=== PATIENT | male | born 1990 | race Caucasian/White ===

== ENCOUNTER 2017-03-10 01:09 | Inpatient (IN) | payer SELFPAY ==
[2017-03-10 01:37] LABS: Hematocrit 50 % (42-52); Hemoglobin 16.7 g/dl (14.0-18.0); Mean Corpuscular HGB Conc 33 g/dl (31-36); Mean Corpuscular Hemoglobin 30 pg (27-31); Mean Corpuscular Volume 90 fL (80-94); Mean Platelet Volume 8 um3 (7.4-10.4); Red Blood Count 5.56 10^6/ul (4.0-5.4); Red Cell Distribution Width 14 % (10.5-15); White Blood Count 12.6 10^3/ul (3.5-10.8)
[2017-03-10 01:53] LABS: ALT 19 U/L (7-52); AST 26 U/L (13-39); Acetaminophen < 15 mcg/mL; Alcohol 238 mg/dL (<10); Alkaline Phosphatase 67 U/L (34-104); Anion Gap 11 mmol/L (2-11); BUN/Creatinine Ratio 15.3 (8-20); Blood Urea Nitrogen 15 mg/dL (6-24); CO2 Carbon Dioxide 23 mmol/L (22-32); Calcium 9.4 mg/dL (8.6-10.3); Chloride 104 mmol/L (101-111); EGFR African American 117.1 (>60); EGFR Non-African American 91.1 (>60); Globulin 2.9 g/dL (2-4); Glucose 99 mg/dL (70-100); Potassium 3.7 mmol/L (3.5-5.0); Salicylate < 2.50 mg/dL (<30); Sodium 138 mmol/L (133-145); Total Protein 7.9 g/dL (6.4-8.9)
[2017-03-10 02:12] LABS: TSH (Thyroid Stimulating Horm) 2.03 mcIU/mL (0.34-5.60)
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
[2017-03-10] MEDS ORDERED: Nicotine GUM* 2 MG ONE (08:28)
[2017-03-10] MEDS: Nicotine GUM* 2 MG PO ONE (08:29)
[2017-03-10 10:17] LABS: Urine Bilirubin Negative (Negative); Urine Glucose Negative (Negative); Urine Nitrite Negative (Negative)
[2017-03-10 10:28] LABS: Benzodiazepine Urine Screen None Detected (None Detect)
[2017-03-10] MEDS ORDERED: Al Hydrox/Mg Hydrox/Simet LIQ* 30 ML UDC PO PRN (13:20)
[2017-03-10] MEDS ORDERED: Acetaminophen TAB* 325 MG PO PRN (13:20)
[2017-03-10] MEDS ORDERED: Haloperidol TAB* 5 MG PO PRN (16:27)
[2017-03-10] MEDS ORDERED: LORazepam TAB(*) 1 MG PO PRN (16:27)
[2017-03-11] MEDS: Vitamin THERAPEUTIC TAB PO SCH (10:01)
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
[2017-03-11] MEDS ORDERED: Nicotine GUM* 2 MG ONE (20:47)
[2017-03-11] MEDS: Nicotine GUM* 2 MG PO ONE (20:48)
[2017-03-12] MEDS: Vitamin THERAPEUTIC TAB PO SCH (11:07)
[2017-03-12] MEDS: Nicotine GUM* 2 MG PO PRN (16:14)
--- NOTE | 2017-03-12 21:09 | PN ---
Subjective - Subjective Service Type: 69985 Hosp care 15 min low complexity Subjective: Patient noted to be calm, cooperative, and pleasant this weekend. He does isolate in his room primarily. He is up for meals and participates in groups. Patient reports frustration with admission. He requests discharge. He denies SI/HI and AH/VH. Sleep and appetite are wnl. Patient informed his attending psychiatrist will see him in the am. Objective - Appearance Appearance: Well Developed/Nourished Dysmorphic Features: No Hygiene: Normal Grooming: Well Kept - Behavior Psychomotor Activities: Normal Exhibits Abnormal Movement: No - Attitude and Relatedness Attitude and Relatedness: Cooperative Eye Contact: Fair - Speech Quality: Unpressured Latencies: Normal Quantity: Appropriate - Mood Patient's Decription of Mood: "Fine" - Affect Observed Affect: Tense Affect Consistent with: Dysphoria - Thought Process Patient's Thought Process: Coherent Thought Content: No Passive Wish, No Suicidal Planning, No Homicidal Ideation, No Paranoid Ideation - Sensorium Experiencing Hallucinations: No, Sensorium is Clear Type of Hallucinations: Visual: No, Auditory: No, Command: No - Level of Consciousness Level of Consciousness: Alert Orientation: Yes Intact, Yes Orientated to Time, Yes Orientated to Place, Yes Orientated to Person - Impulse Control Impulse Control: Intact - Insight and Judgement Insight and Judgement: Fair - Group Participation Particating in Group Activities: Yes - Medication Management Medication Management Adherence: Yes Assessment - Assessment Merits Inpatient Hospitalization: For Immediate Safety, For Stabilization Inpatient DSM-IV Dx: 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 2. Alcohol use d/o, severe. 3. Cocaine use d/o, severe Plan - Plan Treatment Plan: Name: MARIA LUZ BENNETT Birthdate: 1990 [id number] 1. Continue admission to [facility] for safety and Sx mx. 2. Consider inpt/outpt [facility] referral. 3. Patient w/o Alcohol w/d symptoms, WAM not started. 4. Patient informed his attending psychiatrist will see him in the am. Medications: Current Medications Acetaminophen (Tylenol Tab*) 650 mg PO Q4H PRN PRN Reason: for pain; or Temp >101 F Al Hydrox/Mg Hydrox/Simethicone (Maalox Plus*) 30 ml PO Q4H PRN PRN Reason: INDIGESTION Haloperidol (Haldol Tab*) 5 mg PO Q6H PRN PRN Reason: AGITATION Lorazepam (Ativan Tab(*)) 2 mg PO Q6H PRN PRN Reason: ANXIETY Multivitamins (Theragran Tab*) 1 tab PO DAILY WALKER Last Admin: 03/12/17 11:07 Dose: Not Given Nicotine Polacrilex (Nicotine Gum*) 2 mg PO Q2H PRN PRN Reason: CRAVINGS Last Admin: 03/12/17 16:14 Dose: 2 mg - Discharge Plan Discharge Plan: Drug/Alcohol Rehab
[2017-03-13 08:02] VITALS: BP 116/70
[2017-03-13] MEDS: Vitamin THERAPEUTIC TAB PO SCH (09:39)
[2017-03-13] MEDS: Nicotine GUM* 2 MG PO PRN ×3 (10:56→21:59)
--- NOTE | 2017-03-13 14:41 | PN ---
Subjective - Subjective Service Type: 21565 Hosp care 15 min low complexity Subjective: The patient is seen along with KELLEN Sanders. He is friendly and in good spirits, requesting discharge from the hospital. Maria Luz appears minimizing of his immediate mental health needs, although he acknowledges that outpatient support, in the form of counseling, would be helpful for him. "I shouldn't have been admitted. I was drunk. I didn't mean those things I was saying." He denies SI and declines the need for substance abuse treatment. He is future- oriented, talking about getting his old job back in [place], [place]. He gives us the number of a close friend for collateral, preferring that we not contact his family. Objective - Appearance Appearance: Well Developed/Nourished Dysmorphic Features: No Hygiene: Normal Grooming: Fairly Well Kept - Behavior Psychomotor Activities: Normal Exhibits Abnormal Movement: No - Attitude and Relatedness Attitude and Relatedness: Cooperative Eye Contact: Fair - Speech Quality: Unpressured Latencies: Normal Quantity: Appropriate - Mood Patient's Decription of Mood: "Good" - Affect Observed Affect: Good Affect Consistent with: Euthymia - Thought Process Patient's Thought Process: Coherent Thought Content: No Passive Wish, No Suicidal Planning, No Homicidal Ideation, No Paranoid Ideation - Sensorium Experiencing Hallucinations: No, Sensorium is Clear Type of Hallucinations: Visual: No, Auditory: No, Command: No - Level of Consciousness Level of Consciousness: Alert Orientation: Yes Intact, Yes Orientated to Time, Yes Orientated to Place, Yes Orientated to Person - Impulse Control Impulse Control: Tenuous - Insight and Judgement Insight and Judgement: Fair - Group Participation Particating in Group Activities: Yes - Medication Management Medication Management Adherence: Yes Assessment - Assessment Merits Inpatient Hospitalization: Consolidate Improvements, Pending Safe DC Plan Inpatient DSM-IV Dx: 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 2. Alcohol use d/o, severe. 3. Cocaine use d/o, severe Clinical Impression: 26 y.o. single, white male who is homeless and unemployed, presenting with acute alcohol intoxication and threats to kill himself. Plan - Plan Treatment Plan: Name: MARIA LUZ BENNETT Birthdate: 1990 [id number] The patient is receiving conservative milieu therapy. He denies SI and feels like he would like to be discharged with outpatient care. We await consultation with a Medicaid manager intensive care and will make outpatient follow up referrals. He declines inpatient or outpatient drug/alcohol rehab. Continued Medication Management: Consider Medication Medications: Current Medications Acetaminophen (Tylenol Tab*) 650 mg PO Q4H PRN PRN Reason: for pain; or Temp >101 F Al Hydrox/Mg Hydrox/Simethicone (Maalox Plus*) 30 ml PO Q4H PRN PRN Reason: INDIGESTION Haloperidol (Haldol Tab*) 5 mg PO Q6H PRN PRN Reason: AGITATION Lorazepam (Ativan Tab(*)) 2 mg PO Q6H PRN PRN Reason: ANXIETY Multivitamins (Theragran Tab*) 1 tab PO DAILY WALKER Last Admin: 03/13/17 09:39 Dose: Not Given Nicotine Polacrilex (Nicotine Gum*) 2 mg PO Q2H PRN PRN Reason: CRAVINGS Last Admin: 03/13/17 10:56 Dose: 2 mg - Discharge Plan Discharge Plan: Outpatient Follow Up
[2017-03-14] MEDS: Nicotine GUM* 2 MG PO PRN (08:36)
[2017-03-14] MEDS: Vitamin THERAPEUTIC TAB PO SCH (08:36)
--- NOTE | 2017-03-14 16:43 | DS ---
DATE OF ADMISSION: 03/10/2017. DATE OF DISCHARGE: 03/14/2017. DISCHARGE DIAGNOSES: AXIS I: Alcohol-induced depressive disorder; alcohol use disorder. AXIS II: Deferred. AXIS III: None. AXIS IV: Severe, primary support stressors. AXIS V: At the time of admission was 40 and at the time of discharge 60. CONDITION AT THE TIME OF DISCHARGE: Improved. The patient is calm and cooperative. He has been attending groups, social with peers and staff. He is willing to receive ongoing treatment in the outpatient setting and feels that he is stable enough to receive this treatment in a less restrictive setting. We have spoken with the grandmother of his daughter and she vouches for him, stating that it was likely only because of his intoxication that he made suicidal statements and she feels that he would be better served being discharged from the hospital. The patient is future oriented, indicating that he wants to return to his apartment in [place], [place] and return to work at the [employer]. He is not on medication at this time. The patient is declining referrals to either outpatient or inpatient substance abuse treatment , indicating that his drinking is inconsistent and that he can control it without further care. MENTAL STATUS EXAMINATION AT THE TIME OF DISCHARGE: The patient is a young, white male with laura blonde hair. He is clean and well-groomed. He makes good eye contact and it is easy to establish a rapport with him. He is friendly and well- mannered. Speech has a normal rate, tone and volume. Mood is euthymic with a full affect. Thought process is linear and goal-directed. Thought content is significant for his desire to leave the hospital. He denies suicidal or homicidal ideations. Insight and judgment is fair given his willingness to follow-up with mental health treatment in the community. Cognitively, he is awake and alert with what would appear to be an average intellect. DISCHARGE INSTRUCTIONS TO THE PATIENT: A. Medications: None. B. Diet: Regular. C. Activities: As tolerated. The patient is declining the continuation of further nicotine replacement therapy, indicating his preference to continue smoking cigarettes for the time being. There are no laboratory or diagnostic studies pending at the time of discharge. D. Follow-up care: The patient will follow-up within one week at the [facility] which is in [place], [place]. HOSPITAL COURSE - PART A: Reason for admission: The patient is a 26-year-old, single, unemployed, precariously domiciled, male who was brought in by the police from a friend's house because of suicidal ideations. He was heavily intoxicated on presentation and was allowed time to sober up. Yesterday when he was told that he would likely be admitted to the Inpatient Psychiatric Unit, he eloped and had to be brought back by the police, being admitted under 9.39 law. The patient did report a history of depression in his teenage years for which he took Effexor for an undisclosed period of time. He went on to state that in the past three week, his alcohol consumption had significantly escalated to the point where he was drinking a half of a handle of hard liquor daily, often to the point of intoxication. The Monday prior to admission, he was at his friend Sushma, drinking with her and her boyfriend, a young man named Theo. They all got very intoxicated and he said that he became emotional when Jany made a derogatory comment about him being a bad father to his 2-year-old daughter. At that point, he indicates he jumped out of a second story window with the intention to harm himself, but was unhurt. Later he used a razor to make three superficial cuts to the back of his legs. He asserts that when he went home on Monday, eventually he ended up back at his friend [employer]ushma. He indicates that they overreacted and called the police , and Damián took off because he was afraid of being brought to the hospital. The police were able to apprehend him and bring him in for an evaluation where he presented as quite intoxicated. HOSPITAL COURSE - PART B: Psychiatric treatment rendered: The patient was admitted to the Adult Behavioral Health Unit and placed on q.15 minute checks for his own safety. We did initiate the WA protocol to prevent alcohol withdrawal; however, the patient demonstrated no physiologic signs of alcohol withdrawal and Lorazepam was not administered. After a careful history and his involvement in groups in the milieu setting, it was determined that his issues were likely to be secondary to heavy alcohol consumption. The patient had somewhat minimal insight into this problem and he did decline the offer of a transfer to an inpatient drug and alcohol rehabilitation. He also declined the offer of outpatient drug and alcohol referral services. The patient instead indicated that he has bad relationships and that he needs to stop hanging out with certain friends who use large amounts of alcohol. He does have an apartment that he can stay in in [place]. We were able to reach the grandmother of his daughter who vouched for him that he has a safe place to stay and that he is likely to follow-up with outpatient mental services. The patient seemed very much agreeable with outpatient counseling in the [facility] where he resides. He is also future-oriented, indicating that he is looking forward to getting his job back at [employer] and wanting to move forward with his life. He states that his daughter is his main reason for wanting to continue his life and he would never do anything to hurt her. He has been safe on all checks, calm, cooperative and participatory in the inpatient setting. We do feel that he could be reasonably treated in a less restrictive setting. [id number] #: [id number]
== END 2017-03-14 15:40 | disposition home or self-care (01) | DRG 897 ==
LOC: ED 01:09 → BSU 13:20
PROVIDERS: ADMIT Psychiatry & Neurology Psychiatry; ATTEND Psychiatry & Neurology Psychiatry
DX: F10.94 Alcohol use, unspecified with alcohol-induced mood disorder (principal); F14.94 Cocaine use, unspecified with cocaine-induced mood disorder; R45.851 Suicidal ideations; Y90.9 Presence of alcohol in blood, level not specified; Z59.0 Homelessness; Z56.0 Unemployment, unspecified; F32.9 Major depressive disorder, single episode, unspecified; Z81.3 Family history of other psychoactive substance abuse and dependence; F12.90 Cannabis use, unspecified, uncomplicated
CPT/HCPCS: 36415; 80053; 80307; 80320; 80329; 81003; 84443; 85025; 99222; 99231; A9270-GY; G0480